=== PATIENT | female | born 1980 | race American Indian/Alaskan Native ===

== ENCOUNTER 2021-07-30 10:23 | Inpatient (IN) | payer SELFPAY ==
[2021-07-30 10:46] VITALS: BP 119/71
[2021-07-30] MEDS ORDERED: oxyCODONE /ACETAMINOPHEN 5-325MG TAB PO ONE (11:59)
--- NOTE | 2021-07-30 12:06 | Emergency Department Report ---
ED Abdominal Pain HPI - General Chief Complaint: Abdominal Pain Stated Complaint: GALLSTONES Time Seen by Provider: 07/30/21 11:51 Source: patient Mode of arrival: Ambulatory Limitations: No Limitations - History of Present Illness Initial Comments: 41-year-old female with elevated BMI and past medical history appendectomy the, nephrectomy, gastric bypass presents emerged department complaining of epigastric pain that radiates through to her back associate with occasional nausea from unknown etiology that reminds her of a gallbladder pancreatitis at [facility] she had back in 2017. She has been battling gallstones having issues since 2003 but has not yet had any cholecystectomy or any other cysts surgeries for her gallbladder pancreas or gallbladder. She reports no hemoptysis hematemesis and hematochezia, no fever, chills, sweats. MD Complaint: abdominal pain -: Gradual Radiation: none Migration to: no migration - Related Data Allergies Allergy/AdvReac Type Severity Reaction Status Date / Time No Known Allergies Allergy Unverified 07/30/21 10:43 ED Review of Systems ROS: Stated complaint: GALLSTONES Other details as noted in HPI Comment: All other systems reviewed and negative ED Physical Exam - General Limitations: No Limitations General appearance: alert, in no apparent distress - Head Head exam: Present: atraumatic, normocephalic - Eye Eye exam: Present: normal appearance, PERRL, EOMI Pupils: Present: normal accommodation - ENT ENT exam: Present: normal exam, mucous membranes moist - Neck Neck exam: Present: normal inspection - Respiratory Respiratory exam: Present: normal lung sounds bilaterally. Absent: respiratory distress - Cardiovascular Cardiovascular Exam: Present: regular rate, normal rhythm. Absent: systolic murmur, diastolic murmur, rubs, gallop - GI/Abdominal GI/Abdominal exam: Present: soft, normal bowel sounds - Extremities Exam Extremities exam: Present: normal inspection - Back Exam Back exam: Present: normal inspection. Absent: CVA tenderness (R), CVA tenderness (L) - Neurological Exam Neurological exam: Present: alert, oriented X3, CN II-XII intact - Psychiatric Psychiatric exam: Present: normal affect, normal mood. Absent: anxious, flat affect, manic - Skin Skin exam: Present: warm, dry, intact, normal color. Absent: rash ED Course Vital Signs 07/30/21 10:44 Temperature 98.4 F Pulse Rate 69 Respiratory 16 Rate Blood Pressure 119/71 O2 Sat by Pulse 99 Oximetry ED Medical Decision Making - Lab Data Result diagrams: 07/30/21 12:20 07/30/21 12:20 Lab Results 07/30/21 07/30/21 07/30/21 Range/Units 12:20 12:20 Unknown WBC 5.5 (4.5-11.0) K/mm3 RBC 4.02 (3.65-5.03) M/mm3 Hgb 12.7 (10.1-14.3) gm/dl Hct 39.2 (30.3-42.9) % MCV 98 H (79-97) fl MCH 32 (28-32) pg MCHC 33 (30-34) % RDW 17.2 H (13.2-15.2) % Plt Count 242 (140-440) K/mm3 Lymph % (Auto) 10.2 L (13.4-35.0) % [place] % (Auto) 4.6 (0.0-7.3) % Eos % (Auto) 0.4 (0.0-4.3) % Baso % (Auto) 0.3 (0.0-1.8) % Lymph # (Auto) 0.6 L (1.2-5.4) K/mm3 [place] # (Auto) 0.3 (0.0-0.8) K/mm3 Eos # (Auto) 0.0 (0.0-0.4) K/mm3 Baso # (Auto) 0.0 (0.0-0.1) K/mm3 Seg Neutrophils % 84.5 H (40.0-70.0) % Seg Neutrophils # 4.7 (1.8-7.7) K/mm3 Sodium 139 (137-145) mmol/L Potassium 4.5 (3.6-5.0) mmol/L Chloride 104.4 (98-107) mmol/L Carbon Dioxide 23 (22-30) mmol/L Anion Gap 16 mmol/L BUN 9 (7-17) mg/dL Creatinine 0.8 (0.6-1.2) mg/dL Estimated GFR > 60 ml/min BUN/Creatinine Ratio 11 % Glucose 100 (65-100) mg/dL Calcium 8.9 (8.4-10.2) mg/dL Total Bilirubin 0.70 (0.1-1.2) mg/dL Direct Bilirubin 0.3 H (0-0.2) mg/dL Indirect Bilirubin 0.4 mg/dL AST 764 H (5-40) units/L ALT 316 H (7-56) units/L Alkaline Phosphatase 114 (35-129) units/L Total Protein 6.3 (6.3-8.2) g/dL Albumin 4.2 (3.9-5) g/dL Albumin/Globulin Ratio 2.0 % Lipase 1332 H (13-60) units/L Urine Color Betsy (Yellow) Urine Turbidity Slightly-cloudy (Clear) Urine pH 5.0 (5.0-7.0) Ur Specific [place] 1.036 H (1.003-1.030) Urine Protein 100 mg/dl (Negative) mg/dL Urine Glucose (UA) Neg (Negative) mg/dL Urine Ketones Tr (Negative) mg/dL Urine Blood Sm (Negative) Urine Nitrite Neg (Negative) Urine Bilirubin Sm (Negative) Urine Ictotest Negative (Negative) Urine Urobilinogen 4.0 (<2.0) mg/dL Ur Leukocyte Esterase Lg (Negative) Urine WBC (Auto) 13.0 H (0.0-6.0) /HPF Urine RBC (Auto) 5.0 (0.0-6.0) /HPF U Epithel Cells (Auto) 34.0 H (0-13.0) /HPF Urine Bacteria (Auto) 2+ (Negative) /HPF Urine Mucus 1+ /HPF Urine Yeast (Budding) Few /HPF Urine HCG, Qual (Negative) 07/30/21 Range/Units Unknown WBC (4.5-11.0) K/mm3 RBC (3.65-5.03) M/mm3 Hgb (10.1-14.3) gm/dl Hct (30.3-42.9) % MCV (79-97) fl MCH (28-32) pg MCHC (30-34) % RDW (13.2-15.2) % Plt Count (140-440) K/mm3 Lymph % (Auto) (13.4-35.0) % [place] % (Auto) (0.0-7.3) % Eos % (Auto) (0.0-4.3) % Baso % (Auto) (0.0-1.8) % Lymph # (Auto) (1.2-5.4) K/mm3 [place] # (Auto) (0.0-0.8) K/mm3 Eos # (Auto) (0.0-0.4) K/mm3 Baso # (Auto) (0.0-0.1) K/mm3 Seg Neutrophils % (40.0-70.0) % Seg Neutrophils # (1.8-7.7) K/mm3 Sodium (137-145) mmol/L Potassium (3.6-5.0) mmol/L Chloride (98-107) mmol/L Carbon Dioxide (22-30) mmol/L Anion Gap mmol/L BUN (7-17) mg/dL Creatinine (0.6-1.2) mg/dL Estimated GFR ml/min BUN/Creatinine Ratio % Glucose (65-100) mg/dL Calcium (8.4-10.2) mg/dL Total Bilirubin (0.1-1.2) mg/dL Direct Bilirubin (0-0.2) mg/dL Indirect Bilirubin mg/dL AST (5-40) units/L ALT (7-56) units/L Alkaline Phosphatase (35-129) units/L Total Protein (6.3-8.2) g/dL Albumin (3.9-5) g/dL Albumin/Globulin Ratio % Lipase (13-60) units/L Urine Color (Yellow) Urine Turbidity (Clear) Urine pH (5.0-7.0) Ur Specific [place] (1.003-1.030) Urine Protein (Negative) mg/dL Urine Glucose (UA) (Negative) mg/dL Urine Ketones (Negative) mg/dL Urine Blood (Negative) Urine Nitrite (Negative) Urine Bilirubin (Negative) Urine Ictotest (Negative) Urine Urobilinogen (<2.0) mg/dL Ur Leukocyte Esterase (Negative) Urine WBC (Auto) (0.0-6.0) /HPF Urine RBC (Auto) (0.0-6.0) /HPF U Epithel Cells (Auto) (0-13.0) /HPF Urine Bacteria (Auto) (Negative) /HPF Urine Mucus /HPF Urine Yeast (Budding) /HPF Urine HCG, Qual Negative (Negative) - Radiology Data Radiology results: report reviewed [facility] [address] [place] [address] Cat Scan Report Signed Patient: DELIO WEBB MR#: [id number] : 1980 Acct:[id number] Age/Sex: 41 / F ADM Date: 07/30/21 Loc: ED Attending Dr: Ordering Physician: DAINA PAZ Date of Service: 07/30/21 Procedure(s): CT abdomen pelvis w con Accession Number(s): [id number] cc: DAINA PAZ CT ABDOMEN AND PELVIS WITH CONTRAST HISTORY: abdominal pain COMPARISON: None TECHNIQUE: Routine abdominal and pelvic CT exam performed following intravenous contrast administration.. All CT scans at this location are performed using CT dose reduction for ALARA by means of automated exposure control. FINDINGS: CT ABDOMEN: Lung Bases: No significant abnormality. Liver: No significant abnormality. Biliary: No significant abnormality. Spleen: No significant abnormality. Unenlarged. Pancreas: No significant abnormality. Adrenals: No significant abnormality. Kidneys: No significant abnormality. Lymphatics: No lymphadenopathy. Vasculature: No significant abnormality. Bowel/Peritoneum: No acute findings. Postsurgical changes in the stomach and proximal small bowel appear to be from previous gastric bypass. CT PELVIC: : There is calcified uterine fibroid and a follicle in the right ovary. Lymphatics: No lymphadenopathy. Osseous Structures: No aggressive appearing osseous lesions. Additional Findings: None IMPRESSION: 1. No acute findings. 2. Incidental findings including fibroid noted. Signer Name: Felipe Medina MD Signed: 07/30/2021 3:56 PM Workstation Name: [id number] Transcribed By: ANUJ Dictated By: Felipe Medina MD Electronically Authenticated By: Felipe Medina MD Signed Date/Time: 07/30/21 1556 DD/ 1555 TD/TT: - Medical Decision Making 41-year-old female Nick emerged part department complaining of abdominal pain rating through to her back. CT scan did not show any acute processes. However labs do indicate the the evolving pancreatitis with transaminitis of an unknown etiology. She has a known history of gallbladder disease. My plan is to admit her for medical treatment of this pancreatitis and further ED evaluate the cause. Case was discussed with the hospitalist Dr. Kendrick who will admit and further evaluate Ms. Webb Critical care attestation.: If time is entered above; I have spent that time in minutes in the direct care of this critically ill patient, excluding procedure time. ED Disposition Clinical Impression: Pancreatitis, Transaminitis Disposition: 09 ADMITTED INPATIENT Is pt being admited?: Yes Does the pt Need Aspirin: No Condition: Stable Instructions: Abdominal Pain (ED)
[2021-07-30 12:54] LABS: Basophils % (Auto) 0.3 % (0.0-1.8); Eosinophils % (Auto) 0.4 % (0.0-4.3); Hematocrit 39.2 % (30.3-42.9); Hemoglobin 12.7 gm/dl (10.1-14.3); Lymphocytes # (Auto) 0.6 K/mm3 (1.2-5.4); Lymphocytes % (Auto) 10.2 % (13.4-35.0); Mean Corpuscular HGB Conc 33 % (30-34); Mean Corpuscular Volume 98 fl (79-97); Monocytes # (Auto) 0.3 K/mm3 (0.0-0.8); Monocytes % (Auto) 4.6 % (0.0-7.3); Platelet Count 242 K/mm3 (140-440); Red Blood Count 4.02 M/mm3 (3.65-5.03); Red Cell Distribution Width 17.2 % (13.2-15.2)
[2021-07-30 13:18] LABS: Alanine Aminotransferase 316 units/L (7-56); Albumin 4.2 g/dL (3.9-5); BUN/Creatinine Ratio 11; Bilirubin,Direct 0.3 mg/dL (0-0.2); Blood Urea Nitrogen 9 mg/dL (7-17); Calcium 8.9 mg/dL (8.4-10.2); Hemolysis Index 3
[2021-07-30 13:48] LABS: Bacteria,Urine 2+ /HPF (Negative); Bilirubin,Urine SM (Negative); Blood,Urine SM (Negative); Color,Urine Amber (Yellow); Mucus,Urine 1+ /HPF
[2021-07-30 13:55] LABS: Ictotest,Urine Negative (Negative)
[2021-07-30] MEDS ORDERED: SODIUM CHLORIDE 0.9% 1000 ML 1,000 ML IV ONE (14:15)
[2021-07-30 14:49] LABS: HCG Qualitative,Urine Negative (Negative)
--- NOTE | 2021-07-30 16:01 | Cat Scan Report ---
CT ABDOMEN AND PELVIS WITH CONTRAST HISTORY: abdominal pain COMPARISON: None TECHNIQUE: Routine abdominal and pelvic CT exam performed following intravenous contrast administrat ion.. All CT scans at this location are performed using CT dose reduction for ALARA by means of autom ated exposure control. FINDINGS: CT ABDOMEN: Lung Bases: No significant abnormality. Liver: No significant abnormality. Biliary: No significant abnormality. Spleen: No significant abnormality. Unenlarged. Pancreas: No significant abnormality. Adrenals: No significant abnormality. Kidneys: No significant abnormality. Lymphatics: No lymphadenopathy. Vasculature: No significant abnormality. Bowel/Peritoneum: No acute findings. Postsurgical changes in the stomach and proximal small bowel [place] ear to be from previous gastric bypass. CT PELVIC: : There is calcified uterine fibroid and a follicle in the right ovary. Lymphatics: No lymphadenopathy. Osseous Structures: No aggressive appearing osseous lesions. Additional Findings: None IMPRESSION: 1. No acute findings. 2. Incidental findings including fibroid noted. Signer Name: Felipe Medina MD Signed: 07/30/2021 3:56 PM Workstation Name: [id number]
[2021-07-30] MEDS ORDERED: METOCLOPRAMIDE 10 MG/2 ML INJ IV PRN (18:36)
[2021-07-30] MEDS ORDERED: ACETAMINOPHEN 325 MG TAB PO PRN (18:36)
[2021-07-30] MEDS ORDERED: oxyCODONE /ACETAMINOPHEN 5-325MG TAB PO PRN (18:36)
[2021-07-30] MEDS ORDERED: HYDROmorphone 1 MG/1 ML INJ IV PRN (18:36)
[2021-07-30] MEDS ORDERED: ONDANSETRON 4 MG/2 ML INJ IV PRN (18:36)
[2021-07-30] MEDS ORDERED: MORPHINE 2 MG/1 ML INJ IV PRN (18:36)
--- NOTE | 2021-07-30 18:36 | History and Physical Report ---
History of Present Illness Date of examination: 07/30/21 Date of admission: 07/30/2021 Chief complaint: Acute abdominal pain for 2 days History of present illness: 41-year-old female with history of gastric bypass, nephrectomy, appendectomy comes in for epigastric pain. Pain is for the last 2 days. Patient had similar episode 4 years ago. And was diagnosed with acute pancreatitis. Patient does not drink alcohol. Apparently they told her that it is gallstone pancreatitis. No fever or chills. Pain is about 10 on a scale of 1-10. But intermittent in nature. Nausea present. No vomiting. No exacerbating or relieving factors. Review of Systems ROS: Constitutional no weight loss or weight gain no fever or chills HEENT no sore throat no post nasal drip no diplopia Neck no neck stiffness no lymph gland enlargement Chest and lungs no shortness of breath cough or wheezing CVS no chest pain no diaphoresis no palpitations GI severe nausea and severe abdominal pain Genitourinary system no dysuria no flank pain. Pain is 10 x 10 Musculoskeletal system no muscle pains no joint pains [employer] no syncope no seizures Skin no rash no itching Psychiatric no depression no homicidal or suicidal tendencies Hematologic no lymphedema or bruising Endocrine no polydipsia no polyuria no cold intolerance no heat intolerance Past History Past Medical History: other (Pancreatitis) Past Surgical History: appendectomy, Other (Nephrectomy and gastric bypass s urgery) Social history: lives with family, full code Family history: hypertension Medications and Allergies Allergies Allergy/AdvReac Type Severity Reaction Status Date / Time No Known Allergies Allergy Unverified 07/30/21 10:43 Exam - Constitutional Vitals: Temp Pulse Resp BP Pulse Ox 98.4 F 69 16 119/71 99 07/30/21 10:44 07/30/21 10:44 07/30/21 10:44 07/30/21 10:44 07/30/21 10:44 General appearance: Present: no acute distress, well-nourished - EENT Eyes: Present: PERRL ENT: hearing intact, clear oral mucosa - Neck Neck: Present: supple, normal ROM - Respiratory Respiratory effort: normal Respiratory: bilateral: CTA - Cardiovascular Heart rate: 78 Rhythm: regular Heart Sounds: Present: S1 & S2. Absent: rub, click - Extremities Extremities: pulses symmetrical, No edema Peripheral Pulses: within normal limits - Abdominal General gastrointestinal: Present: soft, tender, non-distended, normal bowel sounds Localized gastrointestinal: tender: diffuse, guarding: diffuse, rebound: diffuse Female genitourinary: Present: normal - Integumentary Integumentary: Present: clear, warm, dry - Musculoskeletal Musculoskeletal: gait normal, strength equal bilaterally - Psychiatric Psychiatric: appropriate mood/affect, intact judgment & insight - Neurologic Neurologic: CNII-XII intact, moves all extremities Results - Labs CBC & Chem 7: 07/31/21 04:31 07/31/21 04:31 Labs: Laboratory Last Values WBC 5.5 K/mm3 (4.5-11.0) 07/30/21 12:20 RBC 4.02 M/mm3 (3.65-5.03) 07/30/21 12:20 Hgb 12.7 gm/dl (10.1-14.3) 07/30/21 12:20 Hct 39.2 % (30.3-42.9) 07/30/21 12:20 MCV 98 fl (79-97) H 07/30/21 12:20 MCH 32 pg (28-32) 07/30/21 12:20 MCHC 33 % (30-34) 07/30/21 12:20 RDW 17.2 % (13.2-15.2) H 07/30/21 12:20 Plt Count 242 K/mm3 (140-440) 07/30/21 12:20 Lymph % (Auto) 10.2 % (13.4-35.0) L 07/30/21 12:20 [place] % (Auto) 4.6 % (0.0-7.3) 07/30/21 12:20 Eos % (Auto) 0.4 % (0.0-4.3) 07/30/21 12:20 Baso % (Auto) 0.3 % (0.0-1.8) 07/30/21 12:20 Lymph # (Auto) 0.6 K/mm3 (1.2-5.4) L 07/30/21 12:20 [place] # (Auto) 0.3 K/mm3 (0.0-0.8) 07/30/21 12:20 Eos # (Auto) 0.0 K/mm3 (0.0-0.4) 07/30/21 12:20 Baso # (Auto) 0.0 K/mm3 (0.0-0.1) 07/30/21 12:20 Seg Neutrophils % 84.5 % (40.0-70.0) H 07/30/21 12:20 Seg Neutrophils # 4.7 K/mm3 (1.8-7.7) 07/30/21 12:20 Sodium 139 mmol/L (137-145) 07/30/21 12:20 Potassium 4.5 mmol/L (3.6-5.0) 07/30/21 12:20 Chloride 104.4 mmol/L (98-107) 07/30/21 12:20 Carbon Dioxide 23 mmol/L (22-30) 07/30/21 12:20 Anion Gap 16 mmol/L 07/30/21 12:20 BUN 9 mg/dL (7-17) 07/30/21 12:20 Creatinine 0.8 mg/dL (0.6-1.2) 07/30/21 12:20 Estimated GFR > 60 ml/min 07/30/21 12:20 BUN/Creatinine Ratio 11 % 07/30/21 12:20 Glucose 100 mg/dL (65-100) 07/30/21 12:20 Calcium 8.9 mg/dL (8.4-10.2) 07/30/21 12:20 Total Bilirubin 0.70 mg/dL (0.1-1.2) 07/30/21 12:20 Direct Bilirubin 0.3 mg/dL (0-0.2) H 07/30/21 12:20 Indirect Bilirubin 0.4 mg/dL 07/30/21 12:20 AST 764 units/L (5-40) H 07/30/21 12:20 ALT 316 units/L (7-56) H 07/30/21 12:20 Alkaline Phosphatase 114 units/L (35-129) 07/30/21 12:20 Total Protein 6.3 g/dL (6.3-8.2) 07/30/21 12:20 Albumin 4.2 g/dL (3.9-5) 07/30/21 12:20 Albumin/Globulin Ratio 2.0 % 07/30/21 12:20 Lipase 1332 units/L (13-60) H 07/30/21 12:20 Urine Color Betsy (Yellow) 07/30/21 Unknown Urine Turbidity Slightly-cloudy (Clear) 07/30/21 Unknown Urine pH 5.0 (5.0-7.0) 07/30/21 Unknown Ur Specific [place] 1.036 (1.003-1.030) H 07/30/21 Unknown Urine Protein 100 mg/dl mg/dL (Negative) 07/30/21 Unknown Urine Glucose (UA) Neg mg/dL (Negative) 07/30/21 Unknown Urine Ketones Tr mg/dL (Negative) 07/30/21 Unknown Urine Blood Sm (Negative) 07/30/21 Unknown Urine Nitrite Neg (Negative) 07/30/21 Unknown Urine Bilirubin Sm (Negative) 07/30/21 Unknown Urine Ictotest Negative (Negative) 07/30/21 Unknown Urine Urobilinogen 4.0 mg/dL (<2.0) 07/30/21 Unknown Ur Leukocyte Esterase Lg (Negative) 07/30/21 Unknown Urine WBC (Auto) 13.0 /HPF (0.0-6.0) H 07/30/21 Unknown Urine RBC (Auto) 5.0 /HPF (0.0-6.0) 07/30/21 Unknown U Epithel Cells (Auto) 34.0 /HPF (0-13.0) H 07/30/21 Unknown Urine Bacteria (Auto) 2+ /HPF (Negative) 07/30/21 Unknown Urine Mucus 1+ /HPF 07/30/21 Unknown Urine Yeast (Budding) Few /HPF 07/30/21 Unknown Urine HCG, Qual Negative (Negative) 07/30/21 Unknown Short CBC 07/30/21 07/31/21 Range/Units 12:20 04:31 WBC 5.5 4.3 L (4.5-11.0) K/mm3 Hgb 12.7 11.7 (10.1-14.3) gm/dl Hct 39.2 36.2 (30.3-42.9) % Plt Count 242 210 (140-440) K/mm3 BMP 07/30/21 07/31/21 12:20 04:31 Sodium 139 137 Potassium 4.5 4.2 Chloride 104.4 103.7 Carbon Dioxide 23 23 BUN 9 6 L Creatinine 0.8 0.7 Glucose 100 101 H Calcium 8.9 8.4 Liver Function 07/30/21 07/31/21 Range/Units 12:20 04:31 Total Bilirubin 0.70 0.80 (0.1-1.2) mg/dL Direct Bilirubin 0.3 H (0-0.2) mg/dL AST 764 H 316 H (5-40) units/L ALT 316 H 350 H (7-56) units/L Alkaline Phosphatase 114 102 (35-129) units/L Albumin 4.2 3.7 L (3.9-5) g/dL Urine 07/30/21 Range/Units Unknown Urine Color Betsy (Yellow) Urine pH 5.0 (5.0-7.0) Ur Specific [place] 1.036 H (1.003-1.030) Urine Protein 100 mg/dl (Negative) mg/dL Urine Glucose (UA) Neg (Negative) mg/dL - Imaging and Cardiology Imaging and Cardiology: CT of the abdomen No acute findings Incidental findings including fibroids noted Assessment and Plan Advance Directives: Yes (Full code) VTE prophylaxis?: Chemical Plan of care discussed with patient/family: Yes - Patient Problems (1) Acute pancreatitis Current Visit: Yes Status: Acute Qualifiers: Acute pancreatitis complication: unspecified Plan to address problem: We will keep the patient n.p.o. IV fluids Pain management IV Zofran and IV Reglan as necessary (2) Transaminitis Current Visit: Yes Status: Acute Plan to address problem: Gallstone induced? Acute hepatitis profile and MRCP (3) DVT prophylaxis Current Visit: Yes Status: Acute Plan to address problem: On heparin and GI prophylaxis (4) Advance care planning Current Visit: Yes Status: Acute Plan to address problem: Disease education conducted, care plan discussed, diagnosis discussed, prognosis discussed. Patient is full code. Patient acknowledges understanding and agreement with care plan. +30 minutes.
[2021-07-30] MEDS ORDERED: SODIUM CHLORIDE 0.9% 1000 ML 1,000 ML IV SCH (18:45)
[2021-07-30] MEDS ORDERED: ENOXAPARIN 40 MG/0.4 ML INJ SUB-Q SCH (19:00)
[2021-07-30] MEDS ORDERED: FAMOTIDINE 20 MG/2 ML INJ IV SCH (22:00)
[2021-07-31 04:57] LABS: Basophils % (Auto) 0.3 % (0.0-1.8); Eosinophils # (Auto) 0.1 K/mm3 (0.0-0.4); Eosinophils % (Auto) 1.2 % (0.0-4.3); Hematocrit 36.2 % (30.3-42.9); Hemoglobin 11.7 gm/dl (10.1-14.3); Lymphocytes # (Auto) 0.6 K/mm3 (1.2-5.4); Lymphocytes % (Auto) 13.5 % (13.4-35.0); Mean Corpuscular HGB Conc 32 % (30-34); Mean Corpuscular Volume 99 fl (79-97); Monocytes # (Auto) 0.2 K/mm3 (0.0-0.8); Monocytes % (Auto) 5.4 % (0.0-7.3); Platelet Count 210 K/mm3 (140-440); Red Blood Count 3.67 M/mm3 (3.65-5.03); Red Cell Distribution Width 17.3 % (13.2-15.2)
[2021-07-31 05:11] LABS: Alanine Aminotransferase 350 units/L (7-56); Albumin 3.7 g/dL (3.9-5); Blood Urea Nitrogen 6 mg/dL (7-17); Calcium 8.4 mg/dL (8.4-10.2); Hemolysis Index 12
[2021-07-31 05:12] LABS: BUN/Creatinine Ratio 9
--- NOTE | 2021-07-31 11:04 | Progress Note ---
Assessment and Plan Assessment and plan: CT of the abdomen No acute findings Incidental findings including fibroids noted Assessment and Plan Advance Directives: Yes (Full code) VTE prophylaxis?: Chemical Plan of care discussed with patient/family: Yes - Patient Problems (1) Acute pancreatitis Current Visit: Yes Status: Acute Qualifiers: Acute pancreatitis complication: unspecified Plan to address problem: We will keep the patient n.p.o. IV fluids Pain management IV Zofran and IV Reglan as necessary (2) Transaminitis Current Visit: Yes Status: Acute Plan to address problem: Gallstone induced? Acute hepatitis profile and MRCP (3) DVT prophylaxis Current Visit: Yes Status: Acute Plan to address problem: On heparin and GI prophylaxis (4) Advance care planning Current Visit: Yes Status: Acute Plan to address problem: Disease education conducted, care plan discussed, diagnosis discussed, prognosis discussed. Patient is full code. Patient acknowledges understanding and agreement with care plan. +30 minutes. Hospitalist Physical - Constitutional Vitals: Temp Pulse Resp BP Pulse Ox 98.4 F 69 16 119/71 99 07/30/21 10:44 07/30/21 10:44 07/30/21 10:44 07/30/21 10:44 07/30/21 10:44 General appearance: Present: no acute distress, well-nourished Results - Labs CBC & Chem 7: 07/31/21 04:31 07/31/21 04:31 Labs: Laboratory Last Values WBC 4.3 K/mm3 (4.5-11.0) L 07/31/21 04:31 RBC 3.67 M/mm3 (3.65-5.03) 07/31/21 04:31 Hgb 11.7 gm/dl (10.1-14.3) 07/31/21 04:31 Hct 36.2 % (30.3-42.9) 07/31/21 04:31 MCV 99 fl (79-97) H 07/31/21 04:31 MCH 32 pg (28-32) 07/31/21 04:31 MCHC 32 % (30-34) 07/31/21 04:31 RDW 17.3 % (13.2-15.2) H 07/31/21 04:31 Plt Count 210 K/mm3 (140-440) 07/31/21 04:31 Lymph % (Auto) 13.5 % (13.4-35.0) 07/31/21 04:31 [place] % (Auto) 5.4 % (0.0-7.3) 07/31/21 04:31 Eos % (Auto) 1.2 % (0.0-4.3) 07/31/21 04:31 Baso % (Auto) 0.3 % (0.0-1.8) 07/31/21 04:31 Lymph # (Auto) 0.6 K/mm3 (1.2-5.4) L 07/31/21 04:31 [place] # (Auto) 0.2 K/mm3 (0.0-0.8) 07/31/21 04:31 Eos # (Auto) 0.1 K/mm3 (0.0-0.4) 07/31/21 04:31 Baso # (Auto) 0.0 K/mm3 (0.0-0.1) 07/31/21 04:31 Seg Neutrophils % 79.6 % (40.0-70.0) H 07/31/21 04:31 Seg Neutrophils # 3.4 K/mm3 (1.8-7.7) 07/31/21 04:31 Sodium 137 mmol/L (137-145) 07/31/21 04:31 Potassium 4.2 mmol/L (3.6-5.0) 07/31/21 04:31 Chloride 103.7 mmol/L (98-107) 07/31/21 04:31 Carbon Dioxide 23 mmol/L (22-30) 07/31/21 04:31 Anion Gap 15 mmol/L 07/31/21 04:31 BUN 6 mg/dL (7-17) L 07/31/21 04:31 Creatinine 0.7 mg/dL (0.6-1.2) 07/31/21 04:31 Estimated GFR > 60 ml/min 07/31/21 04:31 BUN/Creatinine Ratio 9 % 07/31/21 04:31 Glucose 101 mg/dL (65-100) H 07/31/21 04:31 Calcium 8.4 mg/dL (8.4-10.2) 07/31/21 04:31 Total Bilirubin 0.80 mg/dL (0.1-1.2) 07/31/21 04:31 Direct Bilirubin 0.3 mg/dL (0-0.2) H 07/30/21 12:20 Indirect Bilirubin 0.4 mg/dL 07/30/21 12:20 AST 316 units/L (5-40) H 07/31/21 04:31 ALT 350 units/L (7-56) H 07/31/21 04:31 Alkaline Phosphatase 102 units/L (35-129) 07/31/21 04:31 Total Protein 5.6 g/dL (6.3-8.2) L 07/31/21 04:31 Albumin 3.7 g/dL (3.9-5) L 07/31/21 04:31 Albumin/Globulin Ratio 1.9 % 07/31/21 04:31 Lipase 1332 units/L (13-60) H 07/30/21 12:20 Urine Color Betsy (Yellow) 07/30/21 Unknown Urine Turbidity Slightly-cloudy (Clear) 07/30/21 Unknown Urine pH 5.0 (5.0-7.0) 07/30/21 Unknown Ur Specific [place] 1.036 (1.003-1.030) H 07/30/21 Unknown Urine Protein 100 mg/dl mg/dL (Negative) 07/30/21 Unknown Urine Glucose (UA) Neg mg/dL (Negative) 07/30/21 Unknown Urine Ketones Tr mg/dL (Negative) 07/30/21 Unknown Urine Blood Sm (Negative) 07/30/21 Unknown Urine Nitrite Neg (Negative) 07/30/21 Unknown Urine Bilirubin Sm (Negative) 07/30/21 Unknown Urine Ictotest Negative (Negative) 07/30/21 Unknown Urine Urobilinogen 4.0 mg/dL (<2.0) 07/30/21 Unknown Ur Leukocyte Esterase Lg (Negative) 07/30/21 Unknown Urine WBC (Auto) 13.0 /HPF (0.0-6.0) H 07/30/21 Unknown Urine RBC (Auto) 5.0 /HPF (0.0-6.0) 07/30/21 Unknown U Epithel Cells (Auto) 34.0 /HPF (0-13.0) H 07/30/21 Unknown Urine Bacteria (Auto) 2+ /HPF (Negative) 07/30/21 Unknown Urine Mucus 1+ /HPF 07/30/21 Unknown Urine Yeast (Budding) Few /HPF 07/30/21 Unknown Urine HCG, Qual Negative (Negative) 07/30/21 Unknown Active Medications - Current Medications Current Medications: Generic Name Dose Route Start Last Admin Trade Name Freq PRN Reason Stop Dose Admin Acetaminophen 650 mg 07/30/21 18:36 Acetaminophen 325 Mg Tab PO Q4H PRN Pain MILD(1-3)/Fever >100.5/MELENDREZ Enoxaparin Sodium 40 mg 07/30/21 19:00 Enoxaparin 40 Mg/0.4 Ml Inj SUB-Q QDAY MARILYN Famotidine 20 mg 07/30/21 22:00 07/31/21 10:16 Famotidine 20 Mg/2 Ml Inj IV 20 mg BID MARILYN Administration Hydromorphone HCl 0.5 mg 07/30/21 18:36 Hydromorphone 1 Mg/1 Ml Inj IV Q3H PRN Pain , Severe (7-10) Sodium Chloride 1,000 mls @ 75 mls/hr 07/30/21 18:45 Nacl 0.9% 1000 Ml IV DIRECT MARILYN Metoclopramide HCl 10 mg 07/30/21 18:36 Metoclopramide 10 Mg/2 Ml Inj IV Q6H PRN Nausea And Vomiting Morphine Sulfate 2 mg 07/30/21 18:36 Morphine 2 Mg/1 Ml Inj IV Q4H PRN Pain, Moderate (4-6) Ondansetron HCl 4 mg 07/30/21 18:36 Ondansetron 4 Mg/2 Ml Inj IV Q8H PRN Nausea And Vomiting Oxycodone/Acetaminophen 1 tab 07/30/21 18:36 Oxycodone /Acetaminophen 5-325mg Tab PO Q6H PRN Pain, Moderate (4-6) Sodium Chloride 10 ml 07/30/21 22:00 Sodium Chloride 0.9% 10 Ml Flush Syringe IV BID MARILYN Sodium Chloride 10 ml 07/30/21 18:36 Sodium Chloride 0.9% 10 Ml Flush Syringe IV PRN PRN LINE FLUSH
--- NOTE | 2021-07-31 20:53 | Discharge Summary ---
Providers - Providers Date of Admission: 07/30/21 18:36 Date of discharge: 07/31/21 Attending physician: MIKAYLA PRICE Primary care physician: ASHLEY BLANCAS MD Hospitalization Condition: Stable Disposition: LEFT AGAINST MEDICAL ADVICE Exam - Constitutional Vitals: Temp Pulse Resp BP Pulse Ox 98.4 F 69 16 119/71 99 07/30/21 10:44 07/30/21 10:44 07/30/21 10:44 07/30/21 10:44 07/30/21 10:44 Plan Follow up with: ASHLEY BLANCAS MD [Primary Care Provider] - 3-5 Days
== END 2021-07-31 19:39 | disposition left against medical advice (07) | DRG 440 ==
LOC: ED 10:23 → 3A 18:36
PROVIDERS: ADMIT Internal Medicine; ATTEND Internal Medicine
DX: K85.90 Acute pancreatitis without necrosis or infection, unspecified (principal); R74.01 Elevation of levels of liver transaminase levels; Z90.49 Acquired absence of other specified parts of digestive tract; Z82.49 Family history of ischemic heart disease and other diseases of the circulatory system
CPT/HCPCS: 36415; 74177; 80048; 80053; 80076; 81001; 81025; 83690; 85025; 87086; 96374; 99285; G0378; J3490; J7030; Q9967